=== PATIENT | male | born 1980 | race African-American/Black ===

== ENCOUNTER 2017-11-02 09:40 | Emergency (ER) | payer SELFPAY ==
[~2017-11-02] VITALS: Ht 175.3 cm; Wt 69.0 kg
[2017-11-02 11:30] VITALS: BP 141/88
[2017-11-02] MEDS ORDERED: HYDROCODONE/ACETAMINOPHEN 5/325MG TABLET PO ONE (11:30)
== END 2017-11-02 11:40 | disposition home or self-care (01) ==
LOC: ER 09:46
DX: K08.89 Other specified disorders of teeth and supporting structures (principal)
CPT/HCPCS: 99283